=== PATIENT | male | born 1985 | race Caucasian/White ===

== ENCOUNTER 2020-05-25 17:04 | Emergency (ER) | payer BC, SELFPAY ==
--- NOTE | ~2020-05-25 | CT_ITS ---
EXAMINATION: CT abdomen pelvis w con DATE: 05/25/2020 20:24 INDICATION: Epigastric pain TECHNIQUE: Computed tomography (CT) of the abdomen and pelvis was performed with 100 cc Omnipaque 350 intravenous contrast. The dose-length product was 1564.46 mGy-cm. Automated exposure control and iterative reconstruction technique were employed. COMPARISON: None. FINDINGS: Lung bases are unremarkable. Heart size normal. Small hiatal hernia. No significant vascula r abnormality. No lymphadenopathy. Nonobstructive bowel gas pattern. No free air or free fluid. Small fat-containing umbilical hernia. T here are gallstones. The liver, spleen, pancreas, adrenal glands and kidneys are unremarkable. No acu te osseous abnormality. IMPRESSION: 1. No acute abdominal abnormality. 2: Cholelithiasis. Reviewed, dictated and finalized at location A. [employer] W[employer]ER
[2020-05-25 17:28] VITALS: BP 152/100; PULSE 68; RESP 17; TEMP 36.3; O2SAT 100
[2020-05-25 17:46] LABS: Basophils Percent Auto 0.1 % (0.2-1.2); Immature Granulocyte Absolute 0.04 K/mm3 (0.00-0.031); Immature Granulocyte Percent A 0.3 % (0-0.5); Lymphocytes Absolute Auto 1.25 K/mm3 (0.9-3.2); Lymphocytes Percent Auto 8.6 % (18.3-44.2); Mean Corpuscular HGB Conc 33.3 g/dl (32-36); Mean Corpuscular Hemoglobin 30.2 pg (26-34); Mean Corpuscular Volume 90.5 fl (80-100); Mean Platelet Volume 10.5 fl (7.4-10.4); Monocytes Absolute Auto 0.9 K/mm3 (0.1-0.6); Monocytes Percent Auto 6.4 % (2.6-8.5); Neutrophils Absolute Auto 12.4 K/mm3 (1.3-6.7); Neutrophils Percent Auto 84.6 % (45.5-73.1); Platelet Count Result 286 k/mm3 (150-375); Red Blood Count 4.97 M/mm3 (4.6-6.20); Red Cell Distribution Width 12.5 % (11.5-14.5); White Blood Count 14.6 K/mm3 (4.5-10.0)
[2020-05-25 17:49] LABS: Add Urine Microscopic? YES; Appearance Urine Clear (Clear); Bilirubin Urine Negative (Negative); Blood Urine Negative (Negative); Color Urine Yellow (Yellow); Glucose Urine UA Negative (Negative); Ketones Urine Trace mg/dL (Negative); Leukocyte Esterase Ur Negative LEU/UL (Negative); Mucus Urine Rare /lpf; Nitrate Urine Negative (Negative); Protein Urine 1+ mg/dL (Negative); RBC Urine 0-2 /hpf (0-2); Specific Grav Ur 1.017 (1.001-1.035); Squamous Epithelial Cell Urine Few /hpf (Few); Urobilinogen Urine Negative mg/dL (<2.0); WBC Urine 0-3 /hpf
[2020-05-25 17:59] LABS: Alanine Aminotransferase 32 U/L (4-50); Albumin Level 4.4 g/dL (3.5-5.1); Alkaline Phosphatase 75 U/L (38-126); Anion Gap 5 mmol/L (8-16); Aspartate Amino Transferase 33 U/L (17-59); Bilirubin,Total 0.4 mg/dL (0.2-1.3); Blood Urea Nitrogen 12 mg/dL (9-20); Calcium 9.2 mg/dL (8.4-10.2); Carbon Dioxide 30 mmol/L (22-30); Chloride 106 mmol/L (98-107); Estimated CRCL calculation 174 ml/min; Estimated Glomerular Filt Rate > 60; Glucose 111 mg/dL (75-110); Lipase 23 U/L (23-300); Potassium 4.1 mmol/L (3.4-5.0); Sodium 141 mmol/L (137-145)
[2020-05-25 19:28] VITALS: BP 147/97; PULSE 67; RESP 16; O2SAT 100
[2020-05-25] MEDS: KETOROLAC 15 MG/ML VIAL (*BKC) IV PUSH (19:59)
[2020-05-25] MEDS: BELLADONNA ALK/PHENOB ELIX 10 ML, MAG HYDROX/ALUMINUM HYD/SIMETH 30 ML, LIDOCAINE HCL 2... PO (20:00)
--- NOTE | 2020-05-25 20:03 | ED.ABDPAIN ---
HPI - Abdominal Pain General Chief Complaint: Abdominal Pain Stated Complaint: abd pain/vomiting Time Seen by Provider: 05/25/20 19:21 Source: patient Mode of arrival: ambulatory Limitations: no limitations History of Present Illness HPI narrative: A 35-year-old [facility] complaints of sharp stabbing abdominal pain. Patient notes that it is in his center of his upper abdomen. He denies any associated symptoms with this. Patient states that started yesterday and has been continuing to progress. He denies any nausea or vomiting. Patient states that he does not think that he ate or drink anything that triggered it. He does not have any recollection of ever having this kind of pain before. Related Data Allergies Allergy/AdvReac Type Severity Reaction Status Date / Time No Known Allergies Allergy Verified 05/25/20 17:05 Review of Systems Review of Systems: Narrative: CONSTITUTIONAL: Denies fever, chills, or sweats. EYES: Denies visual changes, redness, or discharge. ENT: Denies rhinorrhea, congestion, sore throat, or otalgia. CARDIOVASCULAR: Denies chest pain, palpitations, or edema. RESPIRATORY: Denies cough or dyspnea. GASTROINTESTINAL: Denies nausea, vomiting, or diarrhea. Endorses abdominal pain GENITOURINARY: Denies dysuria or hematuria. SKIN: Denies rash or itching. MUSCULOSKELETAL: Denies back pain, joint pain, or myalgia. NEUROLOGIC: Denies headache, numbness, dizziness, or weakness. PSYCHIATRIC: Denies anxiety or depression. [facility] Social History Social History Gender identity (if verbalized by the patient): Male Exam Narrative: Exam Narrative: GENERAL: Well-appearing, well-nourished, and in no acute distress. HEAD: Normocephalic, atraumatic. EYES: PERRLA and EOMI. ENT: Nares clear, no rhinorrhea or epistaxis. Mucous membranes moist. Oropharynx without tonsillar hypertrophy exudate or other lesions. Bilateral TMs pearly su nonbulging NECK: Supple. No adenopathy or masses. No carotid bruits or JVD CHEST: Clear to auscultation. No respiratory distress. No wheezes rales or rhonchi HEART: Regular rate and rhythm. No murmur heard. Normal peripheral pulses. ABDOMEN: Obese abdomen, soft, tenderness at the epigastric area, nondistended, normal active bowel sounds. EXTREMITIES: Normal range of motion. No edema. SKIN: Warm, dry, no rash. NEURO: No focal deficits. Alert and oriented x3. PSYCH: Normal mood and affect. Course Reevaluation(s) Reevaluation #1: Patient reexamined and evaluated. Patient states that he is feeling much better after the GI cocktail. We will plan for discharge. Time: 21:23 Vital Signs Vital signs: Vital Signs Temperature 36.3 C L 05/25/20 17:28 Pulse Rate 68 05/25/20 17:28 Respiratory Rate 17 05/25/20 17:28 Blood Pressure 152/100 H 05/25/20 17:28 Pulse Oximetry 100 05/25/20 17:28 Temperature 36.3 C L 05/25/20 20:29 Pulse Rate 67 05/25/20 19:28 Respiratory Rate 16 05/25/20 19:28 Blood Pressure 147/97 H 05/25/20 19:28 Pulse Oximetry 100 05/25/20 19:28 MDM - Abdominal Pain MDM Narrative Medical decision making narrative: In brief this is a 35-year-old gentleman who came into the emergency department with severe epigastric pain. Work-up ensued. Pancreatitis, duodenitis, gastritis and peptic ulcers were considered. Patient's lipase was within normal limits, his remaining laboratory data was within normal limits as well. His BUN was not elevated, this is reassuring for lack of an upper GI bleed. Patient's vital signs remained stable during his visit. I feel he is stable for discharge at this time. As far as the patient's symptoms he may have some gastritis or possible early ulcer. Patient will be started on a PPI upon discharge and recommended to follow-up with his PCP. Medical Records Attestation: I reviewed the patient's medical records. Lab Data Attes
[2020-05-25 20:29] VITALS: TEMP 36.3
[2020-05-25 21:27] VITALS: BP 143/83; PULSE 81; RESP 17; O2SAT 98
[2020-05-25 21:31] VITALS: BP 143/83; PULSE 83; RESP 16; O2SAT 99
== END 2020-05-25 21:32 | disposition home or self-care (01) ==
PROVIDERS: Emergency Medicine; Emergency Provider Emergency Medicine
DX: K29.00 Acute gastritis without bleeding (principal); K80.20 Calculus of gallbladder without cholecystitis without obstruction
CPT/HCPCS: 36415; 74177; 80053; 81001; 83690; 85025; 96374; 99284; A9270; J1885; Q9967

== ENCOUNTER 2020-05-28 20:45 | Emergency (ER) | payer BC, SELFPAY ==
[2020-05-28] VITALS (14 sets, daily range): BP systolic 107–144; BP diastolic 60–105; PULSE 100; RESP 17; TEMP 36.5; O2SAT 96–100
--- NOTE | ~2020-05-28 | CT_ITS ---
EXAMINATION: CT abdomen pelvis w con DATE: 05/28/2020 22:36 INDICATION: Right upper quadrant abdominal pain. TECHNIQUE: Computed tomography (CT) of the abdomen and pelvis was performed with 100 mL Omnipaque 350 intravenous contrast. Automated exposure control and iterative reconstruction technique were employe d. The dose-length product was 1650.24 mGy-cm. COMPARISON: CT abdomen and pelvis 05/25/20 FINDINGS: The visualized portions of the lung bases demonstrate minimal atelectasis. No pleural effus ion. The heart size is normal. No pericardial effusion. There is bilateral gynecomastia. The liver an d spleen are normal. There are gallstones in the gallbladder, which is normal in size. There is fat s tranding around the gallbladder, consistent with inflammation. The pancreas, adrenal glands, and kidn eys are normal. There are no dilated loops of bowel. The appendix is normal. There are no pathologica lly enlarged lymph nodes. There is trace pelvic ascites. There is moderate thoracolumbar spondylosis. IMPRESSION: 1. Acute cholecystitis. Reviewed, dictated and finalized at location A. [employer]CH[employer]IC[employer] IMPRESSION: 1. Acute cholecystitis.
[2020-05-28 21:35] LABS: Basophils Percent Auto 0.4 % (0.2-1.2); Eosinophils Absolute Auto 0.1 K/mm3 (0-0.3); Eosinophils Percent Auto 1.5 % (0-4.4); Hematocrit 41.2 % (42.0-52.0); Hemoglobin 13.8 g/dL (14.0-18.0); Immature Granulocyte Absolute 0.03 K/mm3 (0.00-0.031); Immature Granulocyte Percent A 0.3 % (0-0.5); Lymphocytes Absolute Auto 2.02 K/mm3 (0.9-3.2); Lymphocytes Percent Auto 21.3 % (18.3-44.2); Mean Corpuscular HGB Conc 33.5 g/dl (32-36); Mean Corpuscular Hemoglobin 30.1 pg (26-34); Mean Corpuscular Volume 89.8 fl (80-100); Mean Platelet Volume 10.4 fl (7.4-10.4); Monocytes Percent Auto 10.7 % (2.6-8.5); Neutrophils Absolute Auto 6.2 K/mm3 (1.3-6.7); Neutrophils Percent Auto 65.8 % (45.5-73.1); Platelet Count Result 275 k/mm3 (150-375); Red Blood Count 4.59 M/mm3 (4.6-6.20); Red Cell Distribution Width 12.4 % (11.5-14.5); White Blood Count 9.5 K/mm3 (4.5-10.0)
[2020-05-28] MEDS: ONDANSETRON INJ 4 MG/2 ML VIAL IV PUSH (21:36)
[2020-05-28] MEDS: MORPHINE SULFATE (*CRX) 4 MG/ML INJ IV PUSH (21:37)
[2020-05-28 21:46] LABS: Alanine Aminotransferase 38 U/L (4-50); Albumin Level 4.1 g/dL (3.5-5.1); Alkaline Phosphatase 71 U/L (38-126); Anion Gap 5 mmol/L (8-16); Aspartate Amino Transferase 40 U/L (17-59); Bilirubin,Total 0.3 mg/dL (0.2-1.3); Blood Urea Nitrogen 14 mg/dL (9-20); Calcium 8.5 mg/dL (8.4-10.2); Carbon Dioxide 29 mmol/L (22-30); Chloride 105 mmol/L (98-107); Estimated CRCL calculation 174 ml/min; Estimated Glomerular Filt Rate > 60; Glucose 102 mg/dL (75-110); Lipase 42 U/L (23-300); Potassium 3.7 mmol/L (3.4-5.0); Sodium 139 mmol/L (137-145)
--- NOTE | 2020-05-28 22:30 | ED.ABDPAIN ---
HPI - Abdominal Pain General Chief Complaint: Abdominal Pain Stated Complaint: Right side abdominal pain Time Seen by Provider: 05/28/20 20:57 History of Present Illness HPI narrative: Patient is a 35-year-old male who presents ER with right upper quadrant abdominal pain. Seen earlier in the week. Pain began while he was at work. It was after he had eaten some corn he does. Associate with some nausea no vomiting. Denies fevers or chills or sweats. Early in the week you have been diagnosed with acid reflux and been prescribed Protonix. He did have a CT scan that showed cholelithiasis. Related Data Allergies Allergy/AdvReac Type Severity Reaction Status Date / Time No Known Allergies Allergy Verified 05/25/20 17:05 Review of Systems Review of Systems: All systems reviewed & are unremarkable except as noted in HPI and below Constitutional: Constitutional: Denies chills, Denies fever(s) and Denies weakness ENT: Denies nasal congestion and Denies sore throat Cardiovascular: Cardiovascular: Denies chest pain, Denies rapid heart rate and Denies radiating jaw, neck or arm pain Gastrointestinal: Gastrointestinal: Reports abdominal pain, Reports nausea and Denies vomiting Musculoskeletal: Musculoskeletal: Denies back pain, Denies joint swelling and Denies muscle cramps PMFSH Past Medical History Medical History (Updated 05/29/20 @ 01:00 by Flo Sanders MD) Cholelithiasis Surgical History Surgical History (Updated 05/28/20 @ 22:32 by Flo Sanders MD) No pertinent past surgical history Social History Social History (Updated 05/28/20 @ 22:32 by Flo Sanders MD) Smoking status: Never smoker Gender identity (if verbalized by the patient): Male Exam Narrative: Exam Narrative: GENERAL: Well-appearing, well-nourished, and in no acute distress. HEAD: Normocephalic, atraumatic. CHEST: Clear to auscultation. No respiratory distress. HEART: Regular rate and rhythm. Normal peripheral pulses. ABDOMEN: Soft, tender palpation right upper quadrant with guarding, nondistended. EXTREMITIES: Normal range of motion. No edema. SKIN: Warm, dry, no rash. NEURO: Alert and oriented x3. PSYCH: Normal mood and affect. Course Course Emergency Course: Moderate improvement in pain. Discussed with general surgery. Discharge home with antibiotics and supportive care. Follow-up in clinic. Patient verbalized understanding. Vital Signs Vital signs: Vital Signs Temperature 97.7 F 05/28/20 20:47 Pulse Rate 100 05/28/20 20:47 Respiratory Rate 17 05/28/20 20:47 Blood Pressure 144/105 H 05/28/20 20:47 Pulse Oximetry 100 05/28/20 20:47 Temperature 97.7 F 05/28/20 20:47 Pulse Rate 100 05/28/20 20:47 Respiratory Rate 17 05/28/20 20:47 Blood Pressure 133/88 05/28/20 23:46 Pulse Oximetry 96 05/28/20 23:46 MDM - Abdominal Pain Lab Data Result diagrams: 05/28/20 21:29 05/28/20 21:29 Labs: Lab Results 05/28/20 05/28/20 Range/Units 21:29 21:29 WBC 9.5 (4.5-10.0) K/mm3 RBC 4.59 L (4.6-6.20) M/mm3 Hgb 13.8 L (14.0-18.0) g/dL Hct 41.2 L (42.0-52.0) % MCV 89.8 (80-100) fl MCH 30.1 (26-34) pg MCHC 33.5 (32-36) g/dl RDW 12.4 (11.5-14.5) % Plt Count 275 (150-375) k/mm3 MPV 10.4 (7.4-10.4) fl Immature Gran % (Auto) 0.3 (0-0.5) % Neut % (Auto) 65.8 (45.5-73.1) % Lymph % (Auto) 21.3 (18.3-44.2) % [place] % (Auto) 10.7 H (2.6-8.5) % Eos % (Auto) 1.5 (0-4.4) % Baso % (Auto) 0.4 (0.2-1.2) % Lymph # (Auto) 2.02 (0.9-3.2) K/mm3 [place] # (Auto) 1.0 H (0.1-0.6) K/mm3 Eos # (Auto) 0.1 (0-0.3) K/mm3 Baso # (Auto) 0.0 (0.0-0.1) K/mm3 Abs Immat Gran (auto) 0.03 (0.00-0.031) K/mm3 Absolute Neuts (auto) 6.2 (1.3-6.7) K/mm3 Absolute Nucleated RBC 0.0 (0.0-0.012) K/mm3 Nucleated RBC % 0.0 (0.0-0.2) % Sodium 139 (137-145) mmol/L Potassium 3.7 (3.4-5.0) mmol/L Chlor
[2020-05-29] VITALS (8 sets, daily range): BP systolic 122–135; BP diastolic 87–93; PULSE 88; O2SAT 96–98
[2020-05-29] MEDS: MORPHINE SULFATE (*CRX) 4 MG/ML INJ IV PUSH (01:20)
== END 2020-05-29 01:32 | disposition home or self-care (01) ==
PROVIDERS: Emergency Provider Emergency Medicine
DX: K80.42 Calculus of bile duct with acute cholecystitis without obstruction (principal)
CPT/HCPCS: 36415; 74177; 80053; 83690; 85025; 96374; 96375; 96376; 99284; J2270; J2405; Q9967